=== PATIENT | female | born 1990 | race Caucasian/White ===

== ENCOUNTER 2021-04-19 07:48 | Emergency (ER) | payer SELFPAY ==
[~2021-04-19] VITALS: Ht 154.9 cm; Wt 65.9 kg
[2021-04-19 07:58] VITALS: BP 110/74; TEMP 98.5
[2021-04-19] MEDS ORDERED: VENTOLIN0.09 MG IH (08:01)
[2021-04-19 09:05] VITALS: PULSE 72
== END 2021-04-19 09:05 | disposition home or self-care (01) ==
LOC: COL.ER 07:48
DX: S63.92XA Sprain of unspecified part of left wrist and hand, initial encounter (principal); F17.200 Nicotine dependence, unspecified, uncomplicated; W23.1XXA Caught, crushed, jammed, or pinched between stationary objects, initial encounter; Y92.59 Other trade areas as the place of occurrence of the external cause; Y99.0 Civilian activity done for income or pay